=== PATIENT | female | born 1955 | race Caucasian/White ===

== ENCOUNTER 2025-03-02 12:48 | Outpatient (AMB) | payer MEDICARE, OTHER, SELFPAY ==
--- NOTE | 2025-03-02 13:02 | MHC.PC.OV ---
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 Patient c/o sciatica px flaring today. 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- aspirin 81 mg PO DAILY hydrochlorothiazide 25 mg PO DAILY lisinopril 40 mg PO DAILY metoprolol tartrate 12.5 mg PO BID rosuvastatin 5 mg PO DAILY Tobacco use date assessed: 03/02/25 Fall risk assessment: No Falls in past year Last assessed Fall Risk: 03/02/25 Dental Screening Dental Screen Date: 03/02/25 Did you have a dental visit in the last 12 months?: Yes Did you have a dental problem in the last 6 months where you did not have access to dental care?: No Was dental information given to patient?: Patient has dentist HPI HPI Comments History of Present Illness Details 69 y/o F with HTN, HLD, CAD, liver cysts, hx of spontaneous coronary dissection 2010 Social: , has children ( Woody also a patient here) Health Maintenance Flu 03/02/25 Tdap 2018 Mammo Colon DEXA Pap Specialist [facility] cards annual visits, last 01/2025 History of Present Illness The patient is a 69 year old female presenting to est care with sciatica. only previous medical records avail to review were from cards. Sciatica: - Reports pain left lower back radiating down leg, ongoing for years. - Symptoms include numbness, tingling, aggravated by prolonged sitting, activities like gardening. Left low back pain Left foot goes numb intermittently Started Hx of R foot drop years ago Saw neuro at that time Reports testing done -- ?? EMG States it did not show anything Denies red flag sx. Vertigo: - Episodic vertigo upon left side positioning, currently less active. BPPV worse on L side sx come and go Would like Vestibular PT History of Spontaneous Coronary Artery Dissection/HTN/CAD - In 2010 after workout and stress; required coma for prevention of brain damage. Monitored by Cards Review of Systems - Musculoskeletal: Reports left lower back pain radiating to leg with numbness and tingling. - Neurological: Denies current active vertigo but reports past episodes associated with left-side positioning. - Cardiovascular: Denies new episodes post-2011 coronary artery dissection. Physical Exam General: Well developed, well nourished, in no acute distress. Appears stated age. Head: Normocephalic, atraumatic. Eyes: Pupils are equal, round and reactive to light and accommodation. Conjunctivae are clear. Vision grossly normal. Lungs: Clear to auscultation bilaterally. No rales, rhonchi or wheeze noted. Good air flow in all [place]. Heart: Regular rate and rhythm. No murmurs, click, rubs or gallops are noted. Musculoskeletal: Joints are nontender, without swelling, redness, or effusions. Pulses: Peripheral pulses are equal and palpable bilaterally. Extremities: No clubbing, cyanosis nor edema is noted. Left leg larger than Right (baseline) Neuro: REDDING x 4, normal strength, tone and reflexes. no spinal tenderness, no si joint tenderness. No CVAT bilat. Psych: Mood and affect appropriate. Results Pending Discussion Notes I discussed the patient's sciatica, suggesting physical therapy to address ongoing back and leg pain. We reviewed the patient's history of spontaneous coronary artery dissection and current management with medications like aspirin and rosuvastatin. For vertigo, I proposed vestibular therapy, which the patient was amenable to. I explained the benefits of diclofenac for inflammation, highlighting that the park guard did not restrict NSAID use, and ensured the patient consented to labs for baseline evaluation. Educational discussion included follow-up in 4-6 weeks for lab results review unless sooner due to critical findings. I emphasized communication with cardiology regarding any new symptoms. Patient was given time to ask questions. All questions were answered to their satisfaction. Assessment and Plan 1. Sciatica - Start physical therapy; prescribe diclofenac for inflammation. Use for 2 weeks then PRN 2. Vertigo - Start vestibular therapy. 3. Coronary Artery Disease/HTN/hx of dissection - Continue cardiology follow-up, maintain current medications. 4. Other Management - Baseline labs ordered. Flu admin today Patient Instructions - Take diclofenac two times a day with food for 2 weeks. - Attend physical therapy for both dizziness and back/leg issues. - Get labs done today or whenever convenient. - Call for any new or worsening symptoms or with questions. - RTO 4-6 weeks SAWV sooner PRN Consent The patient consented to the proposed management of sciatica with diclofenac and physical therapy after discussing risks and benefits. She acknowledged understanding NSAID safety post-cardiac incident and agreed to baseline lab testing. Consent obtained verbally during the encounter. Patient was informed and verbally consented to the use of an ambient scribe for clinic note documentation during this visit. Total time spent caring for the patient today was 40 minutes. This includes time spent before the visit reviewing the chart, time spent during the visit, and time spent after the visit on documentation, reviewing laboratory results, diagnostic imaging, medications, performing a medically necessary evaluation, counseling on diagnoses, care coordination, ordering appropriate tests, ordering appropriate medications, review of tests performed by other providers, reporting test results with the patient, communication with other healthcare providers. [facility] Medical History (Updated 03/02/25 @ 14:25 by Brittanie Soto, [facility]) Heart burn HTN (hypertension) Hx of mammogram (~05/2024) Sun-damaged skin Surgical History (Updated 03/02/25 @ 13:13 by Eddy Cee MA) H/O: hysterectomy Hx of colonoscopy (~2019) Family History (Updated 03/02/25 @ 13:14 by Eddy Cee MA) Father HTN (hypertension) High cholesterol Mother Bleeding ulcer Social History (Updated 03/02/25 @ 13:11 by Eddy Cee MA) Household Members: Spouse Both parents involved: No Caregiver staying overnight: No Housing: House Are you a primary critical care registered nurse to a significant other at home: No Do you presently have visiting nurse or other home services: No 75 years or older and lives alone: No Alcohol intake: never Patient Tobacco Use Status: Never used Tobacco e-Cigarette/Vaping Use: Never Used Second Hand Smoke Exposure: No service: No Current occupational status: retired Current occupational exposures/hazards: No Cognitive needs: No Hearing needs: No Vision needs: Yes (wear glasses) Questionnaire PHQ-9 Over the last 2 weeks, how often have you been bothered by any of the following problems? 1. Little interest or pleasure in doing things: not at all 2. Feeling down, depressed, or hopeless: not at all 3. Trouble falling or staying asleep, or sleeping too much: not at all 4. Feeling tired or having little energy: not at all 5. Poor appetite or overeating: not at all 6. Feeling bad about yourself - or that you are a failure or have let yourself or your family down: not at all 7. Trouble concentrating on things, such as reading the newspaper or watching television: not at all 8. Moving or speaking so slowly that other people could have noticed. Or the opposite - being so fidgety or restless that you have been moving around a lot more than usual: not at all 9. Thoughts that you would be better off or of hurting yourself in some way: not at all Total score: 0 Depression Screening Interpretation: Negative Depression Screening Done: Yes 33313 - PHQ-9 Billing: Yes Source: Developed by Drs. Marcos Pineda, Lo Yan, Sukhwinder Matute and colleagues, with an educational maikol from [employer]. Thrive Questionnaire Date Thrive assessed: 03/02/25 I am a: Patient What is your living situation today?: I have a steady place to live Within the past 12 months, did the food you bought not last and you didn't have the money to get more?: Never true Within the past 12 months, did you worry whether your food would run out before you got money to buy more?: Never true Do you have trouble paying for medicines?: No Do you have trouble getting transportation to medical appointments?: No Do you have trouble paying your heating and electricity bill?: No Do you have trouble taking care of your child, family member or friend?: No Do you have trouble with day-to-day activities such as bathing, preparing meals, shopping, managing finances, etc.?: No Are you currently unemployed and looking for a job?: No Are you interested in more education?: No Please select the resources that you would like help with: None Currently or been in a relationship where the following occur: No concerns reported THRIVE Score: 0 AUDIT C Alcohol Use Questionnaire (AUDIT-C) 1. How often do you have a drink containing alcohol?: Never 2. How many drinks containing alcohol do you have on a typical day when you are drinking?: 1 or 2 3. How often do you have six or more drinks on one occasion?: Never Total Score: 0 Score Reviewed/Action Taken: Yes TREVER-7 AMB Questionnaire TREVER-7 Date TREVER - 7 assessed: 03/02/25 Feeling nervous, anxious, or on edge: 0 = Not at all Not being able to stop or control worryin = Not at all Worrying too much about different things: 0 = Not at all Trouble relaxin = Not at all Being so restless that it is hard to sit still: 0 = Not at all Becoming easily annoyed or irritable: 0 = Not at all Feeling afraid as if something awful might happen: 0 = Not at all Total TREVER-7 score (0-4 normal; 5-9 mild; 10-14 moderate; 15-21 severe): 0 Source: Developed by Drs. Marcos Pineda, Lo Yan, Sukhwinder Matute and colleagues, with an educational maikol from [employer]. TREVER-7 Assessment Billing TREVER-7 Assessment Tool: TREVER-7 Assessment 57781 Physical exam (Primary Care) Vital Signs: Last Vital Signs Temp 97.2 F 03/02/25 13:08 Pulse 65 03/02/25 13:08 Resp 12 03/02/25 13:08 BP 104/69 03/02/25 13:08 Pulse Ox 96 03/02/25 13:08 Oxygen Delivery Method Room Air 03/02/25 13:08 BMI result Body Mass Index 29.0 Tobacco/Smoking Status: Tobacco use Status Tobacco use date assessed 03/02/25 03/02/25 13:04 Patient Tobacco Use Status Never used Tobacco 03/02/25 13:11 e-Cigarette/Vaping Use Never Used 03/02/25 13:11 PHQ-9: PHQ-9 Score PHQ-9: Total score 0 03/02/25 13:58 Depression Screening Interpretation: Negative Thrive Assessment: Date of Thrive Assessment Date Thrive assessed 03/02/25 03/02/25 13:04 Currently or been in a relationship where the following occur: No concerns reported Office Procedures Flu Questionnaire Does the patient have a severe egg allergy?: No Does the patient have severe life threatening allergies?: No Does the patient have a fever or illness today?: No Has the patient ever had Guillain-Robert Lee Syndrome?: No Has the patient ever had any past reaction to a flu shot?: No Immunizations Fluarix [id number] (PF) 45 mcg (15 mcg x 3)/0.5 mL IM syringe Performing Provider: DEDRA Barron Performing Location: [facility] Administered by: Eddy Cee MA on 03/02/25 13:50 Dose Route Admin Location Dispensed Lot Number Expiration Date NDC [employer] Care Coach 0.5 mL IM Right Deltoid 0.5 mL [id number] 11/15/25 [id number] [employer] VIS Given Date VIS Provided VIS Publication Date 03/02/25 Single Vaccine 24 Eligibility Eligibility Date Funding Source Not [facility] Eligible 03/02/25 Private Coding Level of Care Code Est Pt Level 4 (78519) Complex EM visit Add On G2211 Diagnoses Encounter to establish care with new provider Z76.89 Spontaneous dissection of coronary artery I25.42 Coronary artery disease involving citizen [place] coronary artery of [place] heart without angina pectoris I25.10 Coronary Disease-Associated Artery/Lesion type: [place] artery [place] vs. transplanted heart: [place] heart Associated angina: without angina Liver cyst K76.89 Influenza vaccination administered at current visit Z23 Benign paroxysmal positional vertigo due to bilateral vestibular disorder H81.13 Laterality: bilateral Primary hypertension I10 Hypertension type: primary hypertension Low back pain radiating to left leg M54.50; M79.605 Additional Codes TREVER-7 Assessment Billing - TREVER-7 Assessment Tool: TREVER-7 Assessment 89052 ([id number]) PHQ-9 - 30094 - PHQ-9 Billing: Yes ([id number]) Assessment & Plan Assessment & Plan (1) Encounter to establish care with new provider: Code(s): Z76.89 - Persons encountering health services in other specified circumstances (2) Spontaneous dissection of coronary artery: Code(s): I25.42 - Coronary artery dissection Category: Medical (3) CAD (coronary artery disease): Code(s): I25.10 - Atherosclerotic heart disease of citizen [place] coronary artery without angina pectoris Category: Medical Qualifiers: Coronary Disease-Associated Artery/Lesion type: [place] artery [place] vs. transplanted heart: [place] heart Associated angina: without angina Qualified Code(s): I25.10 - Atherosclerotic heart disease of citizen [place] coronary artery without angina pectoris (4) Liver cyst: Code(s): K76.89 - Other specified diseases of liver Category: Medical (5) Influenza vaccination administered at current visit: Code(s): Z23 - Encounter for immunization Category: Medical (6) BPPV (benign paroxysmal positional vertigo): Code(s): H81.10 - Benign paroxysmal vertigo, unspecified ear Category: Medical Qualifiers: Laterality: bilateral Qualified Code(s): H81.13 - Benign paroxysmal vertigo, bilateral (7) HTN (hypertension): Code(s): I10 - Essential (primary) hypertension Category: Medical Qualifiers: Hypertension type: primary hypertension Qualified Code(s): I10 - Essential (primary) hypertension (8) Low back pain radiating to left leg: Code(s): M54.50 - Low back pain, unspecified; M79.605 - Pain in left leg Category: Medical Plan . Orders: Orders Influenza [id number] Immunization Today Z23 - Encounter for immunization PT Evaluation and Treatment Today H81.10 - Benign paroxysmal vertigo, unspecified ear Complete Blood Count no Diff Today I10 - Essential (primary) hypertension, I25.10 - Atherosclerotic heart disease of citizen [place] coronary artery without angina pectoris Microalbumin, Random (w Creat) Today I10 - Essential (primary) hypertension, I25.10 - Atherosclerotic heart disease of citizen [place] coronary artery without angina pectoris TSH reflex Free T4 Today I10 - Essential (primary) hypertension, I25.10 - Atherosclerotic heart disease of citizen [place] coronary artery without angina pectoris Ferritin Today I10 - Essential (primary) hypertension, I25.10 - Atherosclerotic heart disease of citizen [place] coronary artery without angina pectoris Vitamin B12 and Folate Today I10 - Essential (primary) hypertension, I25.10 - Atherosclerotic heart disease of citizen [place] coronary artery without angina pectoris PT Evaluation and Treatment Today M54.50 - Low back pain, unspecified, M79.605 - Pain in left leg Comprehensive Met. Panel Today I10 - Essential (primary) hypertension, I25.10 - Atherosclerotic heart disease of [place] coronary artery without angina pectoris Lipid Panel Today I10 - Essential (primary) hypertension, I25.10 - Atherosclerotic heart disease of citizen [place] coronary artery without angina pectoris Hemoglobin A1c Today I10 - Essential (primary) hypertension, I25.10 - Atherosclerotic heart disease of citizen [place] coronary artery without angina pectoris Vitamin D 25-OH Total Today I10 - Essential (primary) hypertension, I25.10 - Atherosclerotic heart disease of citizen [place] coronary artery without angina pectoris Medications: New diclofenac sodium 25 mg PO BID 30 tabs 0RF Patient Instructions: Walk-In Care (Urgent Care): We Make it Easy Walk-in for urgent medical issues such as: ? Seasonal Allergies ? Insect Bites ? Cough ? Diarrhea ? Acute Asthma Attacks ? Back, Knee or Joint Pain ? Ear Infection ? Fever without a Rash ? Headaches ? Nausea ? [place], Rash or Skin Irritation ? Sore Throat ? Sports Physicals ? Vomiting Most insurances are accepted. Patients do not need to be part of the [facility] to seek care at the walk-in clinic. Locations [address] [place], [place] Open Friday through Friday 8am-5pm *Hours may vary due to staffing availability. To confirm Walk-In Care hours please call. [address] [facility] , [place] [address] ? [phone] [facility] Walk-In Care in [place] provides services to ages 18 and over. Open Friday-Friday: 7 a.m. to 5 p.m. and Friday: 9 a.m. to 3 p.m.* *Hours may vary due to staffing availability. To confirm Walk-In Care hours in [place], please call [phone]. [address] [place] [address] ? [phone] [facility] Walk-In Care in [place] provides services to ages 12 and over. Open Friday-Friday: 8 a.m. to 5 p.m. Hours may vary due to staffing availability. To confirm Walk-In Care hours in [place], please call [phone]. LABORATORY SERVICES: [facility] Lab ? Primary Location [address] [place] [address] Friday through Friday 6:00 AM ? 5:00 PM Friday 7:00 AM ? 11:00 AM* [phone] The [facility] Lab is centrally located near the front entrance of the [facility] for easy outpatient access. Convenient parking is provided for outpatients. *Hours may vary due to staffing availability. To confirm Laboratory hours for any location, please call [phone]. Offsite Location For your convenience, we offer offsite laboratory draw stations at the following locations: [address] [place] [address] ? [facility] [address], [address], [place] Friday through Friday 7:30 AM ? 1:00 PM* [phone] *Hours may vary due to staffing availability. To confirm Laboratory hours for any location, please call [phone]. [place] ? [facility] [facility] [address] [facility], [place] Friday through Friday 6:00 AM ? 3:30 PM* Friday 6:30 AM ? 3 PM* [phone] *Hours may vary due to staffing availability. To confirm Laboratory hours for any location, please call [phone]. [address] [facility] Friday through Friday 7:30 AM ? 4:00 PM* [phone] *Hours may vary due to staffing availability. To confirm Laboratory hours for any location, please call [phone] [place] [address] Friday through 9:00 AM ? 4:00 PM* *Hours may vary due to staffing availability. To confirm Laboratory hours for any location, please call [phone]. Appointments are not necessary. Walk-ins are welcome. Like all the departments throughout the [facility], our Lab undergoes frequent reviews to ensure the quality and accuracy of test results, and our staff takes special pride in its status as a nationally accredited facility. Patient Portal: [facility] ONE PATIENT. ONE RECORD. BETTER CARE. [facility] has a fully integrated, cutting-edge mobile electronic health information system that has revolutionized the way we care for our patients and manage our organization. This system improves communication and coordination enabling us to provide safe, higher-quality care, and an overall positive experience for staff and patients. Our first priority, as always, is to deliver the highest quality care possible. The system is running in the background supporting that priority. This portal is for all [facility] services and practices. If you are experiencing any technical difficulties with enrolling or logging into the Patient Portal please complete the [facility] Patient Portal Technical Support Form. [facility] now offers a new secure on-line interactive tool for patients to review their health information ? ?Patient Portal. This interactive web portal will enable patients and their families to take an active role in their care by providing easy, secure access to their health information via the internet. The Patient Portal provides patients with instant access to their health information, including laboratory results, medications, allergies, demographic information, visit history, and more. In addition to managing their own care, parents and health care proxies with authorized consent will appreciate the ability to access the records of those individuals for whom they provide care. Please note: if you wish to gain access (Proxy) to another patient?s portal, you will be required to come to the Medical Records Department in person at [facility]. Both the patient giving proxy access and the proxy will need to provide photo identification and complete the appropriate authorization. The Patient Portal also allows track their appointments online. The [facility] Patient Portal also saves patients time by allowing them to submit updates to their demographic and contact information prior to their visits. Portal email notifications will also alert patients to any new activity on their portal, such as test results and new appointments. In order to initially enroll in the [facility] Patient Portal, you will need to enter some required information including the following: your [facility] Medical Record number your personal home email address name date of Please note: In order to enroll in the [facility] Patient Portal, we need to have your email address on file in your electronic medical record. ?The email address needs to be specific for one person (yourself) in order for your Portal enrollment to be successful. ?You can update your email address in person with our Registration staff when you are registering for a hospital visit. ?Otherwise, you will need to come to the Health Information Management (Medical Records) Department at [facility]. ?We are open from Friday ? Friday from 7:30 a.m. ? 4:30 p.m. ?You will be required to present a photo id. Once you have successfully enrolled in the Patient Portal, you will receive a one-time user id and password for the Portal, sent to your email address. ?This will allow you to log into the Patient Portal within 99 hrs and reset your own logon id and password, and define personal security questions. ?Once your permanent login and password have been set, you can log into the [facility] Patient Portal at any time via the blue button above or from the Portal Logon button on any page of the [facility] website. [facility] encourage all of our patients to enroll in Patient Portal as it presents a valuable opportunity for patients and their families to actively participate in their care and stay healthy Welcome to [facility]. ?We look forward to working with you.
[2025-03-02 13:08] VITALS: BP 104/69; PULSE 65; RESP 12; TEMP 36.2; O2SAT 96; BMI 29.0
--- OUTSIDE RECORDS SUMMARY | 2025-03-02 16:10 | XMS_ITS | Clinical Summary ---
Author Organization [facility] [place] Address [address] [place], [place] [address] Phone Care Team Providers Care Appliance Servicer Name Role Phone Beatriz Santiago MD Primary Care Provider [phone] Allergies No known active allergies Medications rosuvastatin (CRESTOR) 5 mg tablet Take 1 Tablet by mouth daily. 04/08/2023 Active aspirin 81 mg chewable tablet 81 mg daily. 01/16/2020 Active metoprolol tartrate (LOPRESSOR) 25 mg tablet Take 0.5 tablets (12.5 mg total) by mouth 2 (two) times a day. 90 each 3 03/26/2024 Active hydroCHLOROthia zide (HYDRODIURIL) 25 mg tablet TAKE 1 TABLET BY MOUTH EVERY DAY 90 tablet 1 11/08/2024 Active lisinopril (PRINIVIL,ZESTR IL) 40 mg tablet Take 1 tablet (40 mg total) by mouth 1 (one) time each day. 90 tablet 1 12/21/2024 Active Hospital, Clinic, or Other Facility Administered Medication Ordered Dose Route Frequency Start Date End Date Status regadenoson (LEXISCAN) injection 0.4 mg 0.4 mg IV Once in imaging 03/26/2024 Act marco Active Problems Problem Noted Date Diagnosed Date Chest pain 03/26/2024 Assessment & Plan (03/26/2024 3:29 PM EST): She complains of worsening acid reflux type symptom. Previous stress echocardiogram had some hypokinesis in the LAD territory. Considering this, we decided to move forward with Regadenosone stress test. She is currently on aspirin and atorvastatin and I started metoprolol today. HTN (hypertension) 02/01/2021 Overview (02/17/2024): Last Assessment & Plan: Blood pressure is under excellent control with a reading today 134/86. Continue with chlorothiazide and lisinopril as prescribed. Assessment & Plan (03/26/2024 3:29 PM EST): Blood pressure today is 140/70. Since we started the metoprolol and she is already on hydrochlorothiazide and lisinopril, we will continue to monitor for now. Orders: ECG 12 lead Hypercholesterolemia 07/26/2020 Overview (02/17/2024): Last Assessment & Plan: Patient's last LDL cholesterol was 88. This is acceptable. Continue with rosuvastatin as prescribed. 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 She had a stress echocardiogram earlier this year which did not reveal any significant ischemia. She denies any cardiac symptoms or exertional anginal symptoms. She continues on cardioprotective medical therapy with aspirin and statin. No changes to her medical therapies today. I have reviewed with the patient the importance of a heart healthy lifestyle which includes eating a low-fat low-salt diet, getting regular exercise, maintaining a healthy weight, not smoking, and following up with routine medical care. Assessment & Plan (03/26/2024 3:29 PM EST): History of coronary artery excision in 2010. Currently not on any beta-johan. We discussed today that beta-johan usually reduces the recurrence of scad. Her heart rate is 62 bpm. After having detailed discussion, we decided to start on metoprolol 12.5 mg twice daily and see how does she tolerate. Does not want a surveillance CT scan for fibromuscular dysplasia at this time. Orders: Lipid panel; Future Regadenoson (Lexiscan) nuclear stress test with myocardial perfusion; Future Lipid panel Encounters Date Type Department Care Team Description 02/09/2025 Telephone [facility] Cardiology [facility] [address] [place] [address] Provider, Not In System 12/30/2024 Telephone [facility] [address] [facility] [address] [place] [address] Tanna Driscoll NP 12/21/2024 Telephone [facility] [address] [place] [address] Vale Esparza MD from Last 3 Months Surgical History Surgery Date Site/Laterality Comments HYSTERECTOMY 05/19/1992 - 05/18/1993 Medical History Medical History Date Comments Hypertension 02/01/2021 Hypercholesterolemia 07/26/2020 Coronary artery dissection 07/26/2020 Family History Medical History Relation Name Comments Hypertension Father Breast cancer Mother Hypertension Sister Relation Name Status Comments Father Mother Sister Social History Tobacco Use Types Packs/Day Years Used Date Smoking Tobacco: Never Passive Smoke Exposure: Never Smokeless Tobacco: Never Tobacco Cessation:Counseling Given: Not Answered Alcohol Use Standard Drinks/Week Comments Not Currently 0 (1 standard drink = 0.6 oz pur e alcohol) Comments No Sex and Gender Information Value Date Recorded Sex Assigned at Not on file Legal Sex Female 8:31 AM EST Gender Identity Not on file Sexual Orientation Not on file Obstetrics History Para Term AB IAB SAB Ectopic Multiple Livin g Live Births 1 Last Filed Vital Signs Vital Sign Reading Time Taken Comments Blood Pressure 119/80 04/19/2024 8:21 AM EST Pulse 60 03/26/2024 12:54 PM EST Temperature - - Respiratory Rate - - Oxygen Saturation 96% 03/26/2024 12:54 PM EST Inhaled Oxygen Concentration - - Weight 74.8 kg (165 lb) 06/01/2024 8:03 AM EST Height 165.1 cm (5' 5 ) 06/01/2024 8:03 AM EST Body Mass Index 27.46 06/01/2024 8:03 AM EST Plan of Treatment Upcoming Encounters Date Type Department Care Team (Late st Contact Info) Description 04/07/2025 7:40 AM EST Office Visit [facility] [address] [place] [address] Tanna Driscoll NP [address] [place] [address] [address] [place] [address] Health Maintenance Due Date Last Done Comments Zoster Vaccines (1 of 2) 2006 Pneumococcal Vaccine: 50+ Years (2 of 2 - PCV) 04/08/2012 04/08/2011 Falls Risk Assessment 04/21/2022 Hepatitis C Screening 04/21/2022 Medicare Annual Wellness Visit 04/21/2022 Osteoporosis Screening (Bone Density Screening) 04/21/2022 Social Influencers of Health Screening 04/21/2022 Hypertension/CHF/CAD Annual BMP Blood Test 04/28/2022 Depression Screening 05/19/2024 COVID-19 Vaccine ( season) 2025 02/26/2023, 04/30/2022, 03/13/2021, Additional history exists Influenza Vaccine (#1) 2025 , 02/26/2023, 03/25/2022, Additional history exists Colorectal Cancer Screening: Colonoscopy 04/18/2026 04/18/2021 Breast Cancer Screening 06/01/2026 06/01/19, 05/07/2023, 05/06/2022, Additional history exists DTaP,Tdap,and Td Vaccines (2 - Td or Tdap) 01/13/2028 01/12/2018 Cholesterol Screening (Lipid Panel) 04/12/2029 04/12/2024, 02/01/2021 RSV Immunization Adult Patients (1 - 1-dose 75+ series) 2031 HIB Vaccines Aged Out No longer eligi ble based on patient's age to complete this topic HPV Vaccines Aged Out No longer eligi ble based on patient's age to complete this topic Hepatitis A Vaccines Aged Out No long er eligible based on patient's age to complete this topic Hepatitis B Vaccines Aged Out No long er eligible based on patient's age to complete this topic IPV Vaccines Aged Out No longer eligi ble based on patient's age to complete this topic MMR Vaccines Aged Out No longer eligi ble based on patient's age to complete this topic Meningococcal ACWY Vaccine Aged Out N o longer eligible based on patient's age to complete this topic Meningococcal B Vaccine Aged Out No l onger eligible based on patient's age to complete this topic RSV Immunization Patients Under 20 months Aged Out No longer eligible based on patient's age to complete this topic Varicella Vaccines Aged Out No longer eligible based on patient's age to complete this topic Procedures Procedure Name Priority Date/Time Associated Diagnosis Comments MG MAMMO DIGITAL SCREENING W JESUS BILAT Routine 06/01/2024 8:15 AM EST Encounter for screening mammogram for breast cancer LIPID PANEL Routine 04/12/2024 8:05 AM EST Coronary artery dissection HM COLONOSCOPY Routine 04/18/2021 from Last 3 Months or Most Recently Relevant to Health Maintenance Results * MG Mammo Digital Screening w Jesus bilat (06/01/2024 8:15 AM EST) Anatomical Region Laterality Modality Breast Bilateral Mammography 06/01/2024 9:30 AM EST Impressions 06/01/2024 9:45 AM EST No mammographic evidence of malignancy. No suspicious interval change. A negative mammogram in the presence of a clinically suspicious palpable abnormality does not preclude the possibility of malignancy or alter the indications for biopsy. ASSESSMENT: BI-RADS 2: BENIGN RECOMMENDATION(S): 1: Routine screening mammogram BILATERAL in 1 year. -------- FINAL REPORT -------- Dictated By: Sy Fitzpatrick Dictated Date: 06/01/2024 09:30 ET Assigned Physician: Sy Fitzpatrick Reviewed and Electronically Signed By: Sy Fitzpatrick Signed Date: 06/01/2024 09:45 ET Workstation ID: [id number] Transcribed By: Self Edit Transcribed Date: 06/01/2024 09:33 ET Narrative 06/01/2024 9:45 AM EST EXAM: SCREENING MAMMOGRAPHY, BILATERAL HISTORY: SCREENING. Mother with history of breast cancer. COMPARISON: 05/07/2023, 05/04/2022, 03/08/2021 TECHNIQUE: Synthesized CC and MLO projections of each breast. Tomosynthesis of each breast in the CC and MLO projections. ADDITIONAL IMAGING: None Computer-aided detection was employed with the [employer] AI 3-D. TISSUE DENSITY: The breasts are almost entirely fatty. (BI-RADS Category A) FINDINGS: RIGHT BREAST: No suspicious mass. No suspicious calcification. No distortion. No additional suspicious right breast findings LEFT BREAST: There is a stable asymmetry in the superior left breast. No additional suspicious left breast findings Procedure Note Sy Fitzpatrick MD - 06/01/2024 EXAM: SCREENING MAMMOGRAPHY, BILATERAL HISTORY: SCREENING. Mother with history of breast cancer. COMPARISON: 05/07/2023, 05/04/2022, 03/08/2021 TECHNIQUE: Synthesized CC and MLO projections of each breast.Tomosynthesis of each breast in the CC and MLO projections. ADDITIONAL IMAGING: None Computer-aided detection was employed with the [employer] profound AI 3-D. TISSUE DENSITY: The breasts are almost entirely fatty. (BI-RADS CategoryA) FINDINGS: RIGHT BREAST: No suspicious mass. No suspicious calcification. No distortion. Noadditional suspicious right breast findings LEFT BREAST: There is a stable asymmetry in the superior left breast. No additionalsuspicious left breast findings IMPRESSION: No mammographic evidence of malignancy. No suspicious interval change. A negative mammogram in the presence of a clinically suspicious palpableabnormality does not preclude the possibility of malignancy or alter theindications for biopsy. ASSESSMENT: BI-RADS 2: BENIGN RECOMMENDATION(S): 1: Routine screening mammogram BILATERAL in 1 year. -------- FINAL REPORT -------- Dictated By: Sy Fitzpatrick Dictated Date: 06/01/2024 09:30 ET Assigned Physician: Sy Fitzpatrick Reviewed and Electronically Signed By: Sy Fitzpatrick Signed Date: 06/01/2024 09:45 ET Workstation ID: [id number] Transcribed By: Self Edit Transcribed Date: 06/01/2024 09:33 ET us Self Referral Sppl IMG BI PROCEDURES Final Resul t * (ABNORMAL) Lipid panel (04/12/2024 8:05 AM EST) Cholesterol Total 186 100 - 199 mg/dL [facility] Triglycerides 128 0 - 149 mg/dL [facility] HDL Cholesterol 57 >39 mg/dL [facility] 1 VLDL Cholesterol Calculated 23 5 - 40 mg/dL [facility] 1 LDL Chol Calc ([facility]) 106(H) 0 - 99 mg/dL [facility] 1 Blood Venous blood specimen / Unknown 04/12/2024 8:05 AM EST 04/12/2024 Narrative [facility] 1 - 04/13/2024 1:06 AM EST Performed at: - [facility] [address] [id number] Interlocking Machine Operator: Antionette Amado MD, Phone: [phone] Vale Esparza MD LAB BLOOD ORDERABLES Final Res ult [facility] 1 * Colonoscopy (04/18/2021) HM Colonoscopy No interpretation , abstracted Anatomical Region Laterality Modality Other Historical Provider HEALTH MAINTENANCE Final Result from Last 3 Months or Most Recently Relevant to Health Maintenance Insurance MEDICARE [facility] [address] [place] [address] Care Teams Appliance Servicer Relationship Specialty Start Date End Date Beatriz Santiago MD [address] [place] [id number] PCP - General Internal Medicine 02/09/25
--- OUTSIDE RECORDS SUMMARY | 2025-03-02 16:10 | XMS_ITS | Encounter Summary ---
Author Organization [facility] [place] [address] Care Team Providers Care Technician Automated Equipment Name Role Phone Beatriz Santiago MD Primary Care Provider [phone] Reason for Visit * Reason Onset Date Comments Medical Records 02/09/2025 Encounter Details Date Type Department Care Team (Late st Contact Info) Description 02/09/2025 Telephone [facility] [address] [place] [address] Provider, Not In System Social History Tobacco Use Types Packs/Day Years Used Date Smoking Tobacco: Never Passive Smoke Exposure: Never Smokeless Tobacco: Never Alcohol Use Standard Drinks/Week Comments Not Currently 0 (1 standard drink = 0.6 oz pur e alcohol) Comments No Sex and Gender Information Value Date Recorded Sex Assigned at Not on file Legal Sex Female 8:31 AM EST Gender Identity Not on file Sexual Orientation Not on file documented as of this encounter Progress Notes * Gabby Adna - 02/28/2025 3:41 PM EDT Faxed 03/26/2024 Office Note, EKG and 04/19/2024 Nuclear Stress Test to [facility] Att: Brittanie Soto N.P. at [phone] on 02/09/2025 documented in this encounter Plan of Treatment Upcoming Encounters Date Type Department Care Team (Late st Contact Info) Description 04/07/2025 7:40 AM EST Office Visit [facility] [address] [place] [address] Tanna Driscoll, AJ [address] [place] [address] [address] [place] [phone] documented as of this encounter Visit Diagnoses Not on filedocumented in this encounter Care Teams Technician Automated Equipment Relationship Specialty Start Date End Date Beatriz Santiago MD [address] [place] [address] [address] [place] [address] PCP - General Internal Medicine 02/09/25 documented as of this encounter
== END 2025-03-02 14:20 | disposition home or self-care (01) ==
LOC: HO.HMCFM 12:49
PROVIDERS: PCP Nurse Practitioner Family; Visit Provider Nurse Practitioner Family
DX: Z76.89 Persons encountering health services in other specified circumstances (principal); I25.42 Coronary artery dissection; I25.10 Atherosclerotic heart disease of native coronary artery without angina pectoris; K76.89 Other specified diseases of liver; Z23 Encounter for immunization; H81.13 Benign paroxysmal vertigo, bilateral; I10 Essential (primary) hypertension; M54.50 Low back pain, unspecified; M79.605 Pain in left leg

== ENCOUNTER → 2025-03-02 12:48 | Outpatient (BNVA) | payer MEDICARE, OTHER, SELFPAY | PROVIDERS: PCP Nurse Practitioner Family; Visit Provider Nurse Practitioner Family | DX: I10 Essential (primary) hypertension (principal); E78.5 Hyperlipidemia, unspecified; I25.10 Atherosclerotic heart disease of native coronary artery without angina pectoris; M54.32 Sciatica, left side; I25.42 Coronary artery dissection; K76.89 Other specified diseases of liver; H81.13 Benign paroxysmal vertigo, bilateral; M79.605 Pain in left leg; Z23 Encounter for immunization; Z76.89 Persons encountering health services in other specified circumstances | CPT/HCPCS: 90471; 90656; 96127; 99212 ==

== ENCOUNTER 2025-03-28 10:42 | Outpatient (REF) | payer MEDICARE, OTHER, SELFPAY ==
[2025-03-28 13:31] LABS: Hematocrit 43.7 % (37.0-47.0); Hemoglobin 15.0 g/dl (12.0-16.0); Mean Corpuscular HGB Conc 34.3 g/dl (31.0-35.0); Mean Corpuscular Hemoglobin 31.3 pg (27.0-33.0); Mean Corpuscular Volume 91.0 fL (80.0-98.0); NRBC Abs Auto 0.000 X10*3/uL (0.0-0.012); NRBC Pct Auto 0.0 /100WBC (0.0-0.2); Platelet Count 210 X10*3/uL (160-400); Red Blood Count 4.80 X10*6/uL (4.20-5.50); White Blood Count 5.7 X10*3/uL (4.8-10.8)
[2025-03-28 14:26] LABS: Alanine Aminotransferase 24 U/L (0-31); Albumin Level 4.4 g/dL (3.5-5.0); Alkaline Phosphatase 49 U/L (39-117); Anion Gap 10 (12-20); Aspartate Amino Transferase 29 U/L (5-31); Blood Urea Nitrogen 19 mg/dL (9-16); Calcium 9.3 mg/dL (8.4-10.2); Carbon Dioxide 29 mmol/L (22-29); Chloride 108 mmol/L (96-108); Cholesterol 193 mg/dL (<200); Estimated Glomerular Filt Rate > 60; HDL Cholesterol 53 mg/dL (>40); Potassium 3.9 mmol/L (3.3-5.1); Sodium 143 mmol/L (135-145); Total Protein 7.0 g/dL (6.5-8.0); Triglycerides 138 mg/dL (<150)
[2025-03-28 14:35] LABS: Folate 12.3 ng/mL (> or = 4.0); Vitamin B12 213 pg/mL (200-900)
[2025-03-28 14:46] LABS: Ferritin 184 ng/mL (10-250)
== END 2025-03-28 10:43 | disposition home or self-care (01) ==
LOC: HO.HMGCLDS 10:42
PROVIDERS: PCP Nurse Practitioner Family; Visit Provider Nurse Practitioner Family
DX: Z13.1 Encounter for screening for diabetes mellitus (principal); Z13.21 Encounter for screening for nutritional disorder; I25.10 Atherosclerotic heart disease of native coronary artery without angina pectoris; I10 Essential (primary) hypertension
CPT/HCPCS: 36415; 80053; 80061; 82043; 82306; 82570; 82607; 82728; 82746; 83036; 84443; 85027

== ENCOUNTER 2025-05-16 14:02 | Outpatient (AMB) | payer MEDICARE, OTHER, SELFPAY ==
--- NOTE | 2025-05-16 14:03 | A.OFFVIS_ITS ---
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 The Medicare Annual Wellness Visit (AWV) is a yearly appointment with a health professional to identify health risks and help reduce them and to create or update a personalized prevention plan. During a Medicare AWV, health professionals should also review any current opioid prescriptions, detect any cognitive impairment, and establish or update medical and family history. 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 (), Mom w/ bleeding stomach ulcer, fibrous breast; Sister w/ Ulcerative colitis; PGF w/ cancer of old age; PGM [place]; MGM age 92; MGF unknown. Children alive and well. SocHx: , has children ( Woody also a patient here) Health Maintenance: See scanned preventative medicine assessment with personalized health plan and screening schedule. Colon: 2020 [facility], repeat due [address] [facility] Mammo 05/2024, will get done 2025 Ruby DEXA overdue, ordered today PAP: NA Vaccines: Tdap 2017. Flu 2024. Shinges, PCV needed. AAA screen: screened out EKG: managed by Cards [place] of Care: PV cards annual visits, last 03/2025 Derm Optho glasses [facility] Visual Acuity: Glasses last exam 5 years ago Hearing Screening: mild loss , refer for hearing test ACP: has HCP and Living will DNR/DNI Dietary/Nutrition/Exercise Edu provided: Y During the course of the visit the patient was educated and counseled about appropriate screening and preventative services. Patient instructions were provided to the patient in written or electronic format. I have reviewed and verified the above information. History of Present Illness The patient is a 70 year old female presenting for an annual Medicare wellness visit and evaluation of a severe, diffuse pruritic rash. Pruritus: - The patient reports a two-month histor y of a severely pruritic rash that significantly interferes with her sleep. - She was evaluated by a hr leader w lee ann diagnosed an allergic reaction and prescribed dexamethasone and Tylenol. - The patient has since stopped the dexa methasone and reports taking Nasreen without benefit. - She denies any changes to her other me dications and has tried changing laundry detergents without relief. Coronary artery disease: - The patient has a history of coronary artery disease and a spontaneous coronary artery dissection in 2010. - She is co-managed by cardiology, with her last visit in March 2025. Hypertension: - The patient has a history of hypertens ion and takes hydrochlorothiazide and lisinopril. Hyperlipidemia: - The patient has a history of hyperlipi demia and takes rosuvastatin. BPPVertigo: - The patient reports a recent short-margaret ed episode of vertigo, which she attributes to her head slipping off the pillow while tossing and turning from the pruritus. History of Basal Cell Carcinoma: - She has a history of basal cell carcin calin on her head and another location, for which she receives dermatologic follow-up. Past Medical History - Hypertension - Hyperlipidemia - Coronary artery disease - Spontaneous coronary artery dissection in 2010 - Vertigo - History of basal cell carcinoma - Fibroid tumor Past Surgical History - Hysterectomy for a fibroid tumor rafat leon 1991 Review of Systems - Constitutional: Reports significant in somnia secondary to pruritus. - Integumentary: Reports a severe, pruri tic rash for the past 2 months. - Neurological: Reports a recent, short- lived episode of vertigo. - Gastrointestinal: Denies heartburn. Physical Exam General: Well developed, well nourished, in no acute distress. Appears stated age. Head: Normocephalic, atraumatic. Eyes: Pupils are equal, round and reactive to light and accommodation. Conjunctivae are clear. Scleras nonicteric bilat. Vision grossly normal. Ears: TMs clear AU, EACS WNL Nose: Patent, without discharge. Neck: No carotid bruit bilat. Supple, no adenopathy or thyromegaly. Breast: Edu on SBE Lungs: Clear to auscultation bilaterally. No rales, rhonchi or wheeze noted. Good air flow in all izaguirre. Heart: Regular rate and rhythm. No murmurs, click, rubs or gallops are noted. Abdomen: Bowel sounds present in all quadrants. The abdomen is soft, nontender, with no masses or organomegaly noted. No hernias are noted. : Deferred. Reviewed recommendations for routine BOAT WRAPPER Pulses: Peripheral pulses are equal and palpable bilaterally. Extremities: No clubbing, cyanosis nor edema is noted. Neurologic: Gait and station normal. Cranial Nerves 2-12 intact. Motor strength grossly symmetrical and intact. No sensory loss. Balance normal. Skin: Turgor is good. Skin color is good. Hair and nails are without abnormalities. Diffuse maculopapular rash on trunk and ext,sparing face, palms and soles. No evangelist patch. No secondary infection. Psych: Normal eye contact, affect and mood appropriate, and normal interactions. Patient is alert and appropriate to context. Results see below Medical Decision Making The patient is a 70-year-old female here for a wellness visit, but her primary complaint is a severe, pruritic rash ongoing for two months that is causing significant insomnia. The rash has been refractory to initial treatment from dermatology and OTC antihistamines. Given the lack of other new exposures, a medication-induced drug eruption is a primary consideration, specifically from rosuvastatin, which is known to cause a pruritic rash as a rare side effect. The plan is to empirically test this hypothesis by having the patient hold the rosuvastatin for one week. Symptomatic treatment for the severe pruritus and associated insomnia will be provided with hydroxyzine. A prescription for high- dose cetirizine will also be sent, to be initiated only if symptoms do not improve after holding the statin for a week, which allows adequate time for the drug to clear the system. The patient is advised to follow up with dermatology and to notify me if the rash improves, which would support the diagnosis and necessitate a discussion with cardiology about alternative lipid-lowering therapy. Health maintenance items were also addressed, including ordering a long-overdue bone density scan, placing a referral for a future colonoscopy, and recommending indicated vaccinations for shingles and pneumonia. Plan Health Maintenance - Will order a new bone density scan. - A referral will be placed to [facility] erology for a colonoscopy, which is due in 2025. - Discussed and recommended the shingles (Shingrix) and pneumococcal vaccines. - Will request the report for her [facility] ng mammogram in May. 1. Pruritic Rash - A potential adverse effect of rosuvast atin is suspected as the cause of the pruritic rash. - Instructed to hold rosuvastatin for on e week. - Prescribed hydroxyzine 50 mg, one-half to one tablet three times per day as needed for itching and to aid sleep. - A contingent prescription for cetirizi ne was provided, to be started only if the rash does not improve after one week of holding rosuvastatin; the dose is two tablets in the morning and two at bedtime. - Advised to contact dermatology for a f ollow-up appointment. - If the rash resolves after stopping ro suvastatin, the patient should send a portal message so it can be added to her allergy list and a new lipid-lowering agent can be discussed with cardiology. 2. Hyperlipidemia - Temporarily discontinuing rosuvastatin to assess for a medication allergy as the cause of her rash. - Will coordinate with her corporate quality engineer regarding alternative lipid-lowering therapy if a rosuvastatin allergy is confirmed. Patient Instructions - Stop taking your rosuvastatin for one week to see if your rash improves. - You can start taking hydroxyzine for t he itching. You may take a half or a whole tablet up to three times per day as needed. This may also help you sleep. - A second prescription for cetirizine w as sent. Do not start this medication unless your rash is not getting better after one week of stopping the rosuvastatin. - If needed, you will take two cetirizin e tablets in the morning and two at bedtime. - Please call your hr leader to sche dule a follow-up appointment. - If your rash gets better after stoppin g the rosuvastatin, send a message through the patient portal to let us know. - An order for a new bone density scan h as been placed. You will be called to schedule this. - A referral has been sent for you to [facility] ve a colonoscopy. The gastroenterology office will call you to schedule a visit first. - Please get your shingles and pneumonia vaccines, which are available at most pharmacies. Consent No consent for a procedure or surgery was obtained during the visit. Patient was informed and verbally consented to the use of an ambient scribe for clinic note documentation during this visit. An additional 30 minutes was spent addressing the problem(s) noted at todays visit. This includes time spent before the visit reviewing the chart, time spent during the visit, and time spent after the visit on documentation reviewing laboratory results, diagnostic imaging, medications, performing a medically necessary evaluation, counseling on diagnoses, care coordination, ordering appropriate tests, ordering appropriate medications, review of tests performed by other providers, reporting test results with the patient, communication with other healthcare providers. [facility] Medical History (Updated 05/16/25 @ 15:03 by Brittanie Soto [facility]) Heart burn HTN (hypertension) Hx of mammogram (~05/2024) Sun-damaged skin Surgical History (Updated 03/02/25 @ 13:13 by Eddy Cee MA) H/O: hysterectomy Hx of colonoscopy (~2019) Family History (Updated 03/02/25 @ 13:14 by Eddy Cee MA) Father HTN (hypertension) High cholesterol Mother Bleeding ulcer Social History (Updated 03/02/25 @ 13:11 by Eddy Cee MA) Household Members: Spouse Both parents involved: No Caregiver staying overnight: No Housing: House Are you a primary ambulatory care coordinator to a significant other at home: No Do you presently have visiting nurse or other home services: No 75 years or older and lives alone: No Alcohol intake: never Patient Tobacco Use Status: Never used Tobacco e-Cigarette/Vaping Use: Never Used Second Hand Smoke Exposure: No service: No Current occupational status: retired Current occupational exposures/hazards: No Cognitive needs: No Hearing needs: No Vision needs: Yes (wear glasses) Questionnaire Medicare Wellness Checkup What is your age?: 65-70 What gender do you identify with?: female During the past 4 weeks, how much have you been bothered by emotional problems such as feeling anxious, depressed, irritable, sad or downhearted, and blue?: no t at all During the past 4 weeks, has your physical & emotional health limited your social activities with family, friends, neighbors, or groups?: not at all During the past 4 weeks, how much bodily pain have you generally had?: no pain During the past 4 weeks, was someone available to help you if you needed & wanted help?: yes, as much as I wanted During the past 4 weeks, what was the hardest physical activity you could do for at least 2 minutes?: moderate Can you get to places out of walking distance without help? (For eg., can you travel alone on buses, taxis or drive your car?): Yes Can you go shopping for groceries or clothes without someone's help?: Yes Can you prepare your own meals?: Yes Can you do your housework without help?: Yes Because of any health problems, do you need the help of another person with your personal care needs such as eating, bathing, dressing or getting around the house?: No Can you handle your own money without help?: Yes During the past 4 weeks, how would you rate your health in general?: excellent During the past 4 weeks how have things been going for you?: very well; could hardly better Are you having difficulties driving your car?: no Do you always fasten your seat belt when you are in a car?: yes, usually During past 4 weeks, have you been bothered by the following: never: Falling or dizzy when standing up, Sexual problems?, Trouble eating well?, Teeth or denture problems?, Problems using the telephone? and Tiredness or fatigue? Have you fallen 2 or more times in the past year?: No Are you afraid of falling?: No Are you a smoker?: no During the past 4 weeks, how many drinks of wine, beer, or other alcoholic beverages did you have?: no alcohol at all Do you exercise for about 20 minutes 3 or more times a week?: yes, some of the time Have you been given information to help with the following?: no: Hazards in your house that might hurt you? and no: Keeping track of your medications? How often do you have trouble taking medicines the way you have been told to take them?: I always take medicine as prescribed How confident are you that you can control & manage most of your health problems?: very confident What is your race?: White Activity of Daily Living Bathing - sponge bath, tub bath or shower: receives no assistance (gets in/out by self, if usual bathing means Dressing - getting clothes from closets & drawers, including inner/outer garments & fasteners.: gets clothes & gets completely dressed without help Toileting - going to the 'toilet room' for urine/bowel elimination & cleaning self/arranging clothes: goes to toilet room, cleans self, arranges clothes without help Transfer: moves in & out of bed and chair without help (may use support object) Continence: controls urination/bowel movements completely by self Feeding: feeds self without help Total Score: 0 Information obtained from: patient Using telephone: independent Traveling: independent Shopping: independent Preparing meals: independent Housework: independent Taking medicine: independent Managing money: independent PHQ-9 Over the last 2 weeks, how often have you been bothered by any of the following problems? 1. Little interest or pleasure in doing things: not at all 2. Feeling down, depressed, or hopeless: not at all 3. Trouble falling or staying asleep, or sleeping too much: not at all 4. Feeling tired or having little energy: not at all 5. Poor appetite or overeating: not at all 6. Feeling bad about yourself - or that you are a failure or have let yourself or your family down: not at all 7. Trouble concentrating on things, such as reading the newspaper or watching television: not at all 8. Moving or speaking so slowly that other people could have noticed. Or the opposite - being so fidgety or restless that you have been moving around a lot more than usual: not at all 9. Thoughts that you would be better off or of hurting yourself in some way: not at all Total score: 0 Depression Screening Interpretation: Negative Depression Screening Done: Yes 04396 - PHQ-9 Billing: Yes Source: Developed by Drs. Marcos Pineda, Lo Yan, Sukhwinder Matute and colleagues, with an educational maikol from [employer]. Physical Exam Vital Signs: Last Vital Signs Temp 97.2 F 05/16/25 14:07 Pulse 69 05/16/25 14:07 Resp 12 05/16/25 14:07 BP 102/68 05/16/25 14:07 Pulse Ox 98 05/16/25 14:07 Oxygen Delivery Method Room Air 05/16/25 14:07 BMI result Body Mass Index 29.5 Results Reviewed Results Reviewed: Laboratory 03/28/25 Result Units Range Interpretation Provider Comments White Blood Count 5.7 X10*3/uL (4.8-10.8) Red Blood Count 4.80 X10*6/uL (4.20-5.50) Hemoglobin 15.0 g/dl (12.0-16.0) Hematocrit 43.7 % (37.0-47.0) Mean Corpuscular Volume 91.0 fL (80.0-98.0) Mean Corpuscular Hemoglobin 31.3 pg (27.0-33.0) Mean Corpuscular Hemoglobin Concent 34.3 g/dl (31.0-35.0) Red Cell Distribution Width 12.4 % (11.0-16.0) Platelet Count 210 X10*3/uL (160-400) Mean Platelet Volume 11.6 fL (9.4-12.3) Nucleated RBC Absolute Count (auto) 0.000 X10*3/uL (0.0-0.012) Nucleated Red Blood Cells % (auto) 0.0 /100WBC (0.0-0.2) Sodium Level 143 mmol/L (135-145) Potassium Level 3.9 mmol/L (3.3-5.1) Chloride Level 108 mmol/L (96-108) Carbon Dioxide Level 29 mmol/L (22-29) Anion Gap 10 (12-20) Low Blood Urea Nitrogen 19 mg/dL (9-16) High Creatinine 0.86 mg/dL (0.5-1.4) Estimated Creatinine Clearance Calc Not Reportable Estimat Glomerular Filtration Rate > 60 Random Glucose 96 mg/dL (60-115) Estimated Average Glucose 105 mg/dL Hemoglobin A1c Percent 5.3 % (<6.0) Calcium Level 9.3 mg/dL (8.4-10.2) Ferritin 184 ng/mL (10-250) Total Bilirubin 0.6 mg/dL (0.0-1.0) Aspartate Amino Transf (AST/SGOT) 29 U/L (5-31) Alanine Aminotransferase (ALT/SGPT) 24 U/L (0-31) Alkaline Phosphatase 49 U/L (39-117) Total Protein 7.0 g/dL (6.5-8.0) Albumin 4.4 g/dL (3.5-5.0) Triglycerides Level 138 mg/dL (<150) Cholesterol Level 193 mg/dL (<200) LDL Cholesterol, Calculated 113 mg/dL (<100) High HDL Cholesterol 53 mg/dL (>40) Vitamin B12 Level 213 pg/mL (200-900) 25-Hydroxy Vitamin D Total 44.3 ng/mL (>30) Folate 12.3 ng/mL (> or = 4.0) Thyroid Stimulating Hormone (TSH) 1.69 uIU/mL (0.32-4.0) Urine Creatinine 112.60 mg/dL Urine Microalbumin < 5.0 mg/L Urine Microalbumin/Creatinine Ratio TNP Assessment & Plan Assessment & Plan (1) Encounter for subsequent annual wellness visit (AWV) in Medicare patient: Onset Date: ~05/16/25 Code(s): Z00.00 - Encounter for general adult medical examination without abnormal findings (2) ACP (advance care planning): Onset Date: ~05/16/25 Comment: DNR/DNI has HCP and Living will in place Code(s): Z71.89 - Other specified counseling (3) Pruritic rash: Code(s): L28.2 - Other prurigo (4) Menopause: Comment: DEXA ordered Code(s): Z78.0 - Asymptomatic menopausal state (5) Immunization counseling: Comment: advised to get Shingles/Zoster and Pneumococcal Code(s): Z71.85 - Encounter for immunization safety counseling (6) DNR (do not resuscitate): Onset Date: ~05/16/25 Code(s): Z66 - Do not resuscitate (7) Blurred vision: Comment: [facility] Code(s): H53.8 - Other visual disturbances (8) Hard of hearing: Comment: [facility] audio referral Code(s): H91.90 - Unspecified hearing loss, unspecified ear Plan . Orders: Orders XR DEXA axial skeleton Today Z13.820 - Encounter for screening for osteoporosis, Z78.0 - Asymptomatic menopausal state Referrals Ophthalmology Referral H53.8 - Other visual disturbances Audiology Referral H91.90 - Unspecified hearing loss, unspecified ear Gastroenterology Referral Z12.11 - Encounter for screening for malignant neoplasm of colon Medications: New cetirizine (Zyrtec) 20 mg (2 x 10 mg) PO BID PRN 120 caps 0RF allergy symptoms 30 days hydroxyzine HCl 50 mg PO TID PRN 30 tabs 0RF itching On Hold rosuvastatin Hold Comment: Doctor's Order 10 mg PO DAILY 90 tabs 0RF Patient Instructions: Hold rosuvastatin. Start hydroxyzine 25-50 mg 1 tablet 3 times per day as needed for itch. If this remedy resolves your rash, send me a portal message. If after 1 week it does not, continue to hold the rosuvastatin and then start cetirizine 20 mg twice per day and be sure to follow up with Dermatology. Please get the pneumococcal vaccine and the shingles vaccine at the pharmacy. Health screenings for women You should visit your health care provider from time to time, even if you are healthy. The purpose of these visits is to: Screen for medical issues Assess your risk for future medical problems Encourage a healthy lifestyle Update vaccinations and other preventive care services Help you get to know your provider in case of an illness Information Even if you feel fine, you should still see your provider for regular checkups. These visits can help you avoid problems in the future. For example, the only way to find out if you have high blood pressure is to have it checked regularly. High blood sugar and high cholesterol levels also may not have any symptoms in the early stages. A simple blood test can check for these conditions. There are specific times when you should see your provider or receive specific health screenings. The [place] Preventive Services Task Force publishes a list of recommended screenings. Below are screening guidelines for women ages 18 to 39. BLOOD PRESSURE SCREENING Your blood pressure should be checked at least once every 3 to 5 years if: Your blood pressure is in the normal range (top number less than 120 mm Hg and bottom number less than 80 mm Hg) You don't have risk factors for high blood pressure Ask your provider if you need your blood pressure checked more often if: The top number is 120 to 129 mm Hg or the bottom number is 70 to 79 mm Hg You have diabetes, heart disease, kidney problems, are overweight, or have certain other health conditions You have a first-degree relative with high blood pressure You are Black You had high blood pressure during a If the top number is 130 mm Hg or greater or the bottom number is 80 mm Hg or greater, this is considered stage 1 hypertension. Schedule an appointment with your provider to learn how you can reduce your blood pressure. Watch for blood pressure screenings in your area. Ask your provider if you can stop in to have your blood pressure checked. BREAST CANCER SCREENING Experts do not agree about the benefits of breast self-exams in finding breast cancer or saving lives. Talk to your provider about what is best for you. A screening mammogram is not recommended for most women under age 40. Your provider may discuss and recommend mammograms, MRI scans, or ultrasounds if you have an increased risk for breast cancer, such as: A mother or sister who had breast cancer at a young age (most often starting screening earlier than the age the close relative was diagnosed) You carry a high-risk genetic marker CERVICAL CANCER SCREENING Cervical cancer screening should start at age 21 years unless your provider advises otherwise. After the first test: Women ages 21 through 29 should have a Pap test every 3 years. Exoprts do not agree on whether HPV testing is recommended for this age group. Women ages 30 through 65 should be screened with either a Pap test every 3 years or the HPV test every 5 years or both tests every 5 years (called cotesting ). Women who have been treated for precancer (cervical dysplasia) should continue to have Pap tests for 20 years after treatment or until age 65, whichever is longer. If you have had your uterus and cervix removed (total hysterectomy), and you have not been diagnosed with cervical cancer or precancer (high grade cervical neoplasia), you do not need cervical cancer screening. CHOLESTEROL SCREENING Cholesterol screening should begin at: Age 45 for women with no known risk factors for coronary heart disease Age 20 for women with known risk factors for coronary heart disease Repeat cholesterol screening should take place: Every 5 years for women with normal cholesterol levels More often if changes occur in lifestyle (including weight gain and diet) More often if you have diabetes, heart disease, kidney problems, or certain other conditions DIABETES SCREENING You should be screened for diabetes starting at age 35 and then repeated every 3 years if you have no risk factors for diabetes. Screening may need to start earlier and be repeated more often if you have other risk factors for diabetes, such as: You have a first degree relative with diabetes. You are overweight or have obesity. You have high blood pressure, prediabetes, or a history of heart disease. Screening for diabetes should be done if you are planning to become and you are overweight and have other risk factors such as high blood pressure. DENTAL EXAM Go to the dentist once or twice every year for an exam and cleaning. Your dentist will evaluate if you need more frequent visits. EYE EXAM Have an eye exam every 5 to 10 years before age 40. If you have vision problems, have an eye exam every 2 years or more often if recommended by your provider. You should have an eye exam that includes an examination of your retina (back of your eye) at least every year if you have diabetes. IMMUNIZATIONS Commonly needed vaccines include: Flu shot: get one every year. COVID-19 vaccine: ask your provider what is best for you. Tetanus-diphtheria and acellular pertussis (Tdap) vaccine: have one at or after age 19 as one of your tetanus-diphtheria vaccines if you did not receive it as an adolescent. Tetanus-diphtheria: have a booster (or Tdap) every 10 years. Varicella vaccine: receive 2 doses if you never had chickenpox or the varicella vaccine. Hepatitis B vaccine: receive 2, 3, or 4 doses, depending on your exact circumstances. Measles, mumps, and rubella (MMR) vaccine: receive 1 to 2 doses if you are not already immune to MMR. Your provider can tell you if you are immune. Ask your provider about the human papillomavirus (HPV) vaccine if: You have not received the HPV vaccine in the past You have not completed the full vaccine series (you should catch up on this shot) Ask your provider if you should receive other immunizations if you have certain health problems that increase your risk for some diseases such as pneumonia. INFECTIOUS DISEASE SCREENING Women who are sexually active should be screened for chlamydia and gonorrhea up until age 25. Women 25 years and older should be screened for chlamydia and gonorrhea if at high risk. Screening for hepatitis C: All adults ages 18 to 79 should get a one-time test for hepatitis C. people should be screened at every . Screening for human immunodeficiency virus (HIV): All people ages 15 to 65 should get a one-time test for HIV. Depending on your lifestyle and medical history, you may also need to be screened for infections such as syphilis and HIV, as well as other infections. PHYSICAL EXAM All adults should visit their provider from time to time, even if they are healthy. The purpose of these visits is to: Screen for disease Assess your risk of future medical problems Encourage a healthy lifestyle Update your vaccinations and other preventive care services Maintain a relationship with a provider in case of an illness Your height, weight, and BMI should be checked at every exam. During your exam, your provider may ask you about: Depression and anxiety Diet and exercise Alcohol and tobacco use Safety issues, such as using seat belts, smoke detectors, and intimate partner violence Your medicines and risk for interactions SKIN SELF-EXAM Your provider may check your skin for signs of skin cancer, especially if you're at high risk, such as if you: Have had skin cancer before Have close relatives with skin cancer Have a weakened immune system OTHER SCREENING Talk with your provider about colon cancer screening if you have a strong family history of colon cancer or polyps, or if you have had inflammatory bowel disease or polyps yourself. Routine bone density screening of women under 40 is not recommended. Quality Reporting (2019) Adult ([facility] 138//) Smoking risk assessment performed?: Yes Patient Tobacco Use Status: Never used Tobacco Depression screening performed: Yes Screen Results: Yes Negative screen Recommended changes not done: EKG (managed by Cards) Systolic BP not done?: No Diastolic BP not done?: No BMI screening not done: No Sexual Activity Screening ([facility] 153) Sexually active?: Yes Immunizations ([facility] 147, 117) Annual Influenza Vaccine: Yes Measles Antibody Test: No Mumps Antibody Test: No Rubella Antibody Test: No Varicella Antibody Test: No Anti Hepatitis A IgG Antigen test: No Anti Hepatitis B Virus Surface Ab test: No Fall Risk Screening ([facility] 139) Last assessed Fall Risk: 05/16/25 Fall risk assessment: No Falls in past year Dementia Assessment ([facility] 149) Cognitive assessment recorded: Yes Assessment of cognition with standardized tool: Yes Depression/Bipolar (159/160/161/177) PHQ-9: Total score: 0 Ophthalmol:Cataracts Visual Acuity (133) Visual acuity exam performed: Yes (see results) Coding Level of Care Code Medicare Subsequent (G0439) Est Pt Level 4 (39553) Diagnoses Encounter for subsequent annual wellness visit (AWV) in Medicare patient Z00.00 ACP (advance care planning) Z71.89 Pruritic rash L28.2 Menopause Z78.0 Immunization counseling Z71.85 DNR (do not resuscitate) Z66 Blurred vision H53.8 Hard of hearing H91.90 CPT Codes Advance Care Planning - Time spent: 16-45 minutes ([id number]) Additional Codes PHQ-9 - 83675 - PHQ-9 Billing: Yes ([id number]) Advance Care Planning Advance Care Planning discussion: Exists, not on file Date of discussion: 05/16/25 Who was present: self, DNR/DNI Forms completed: Health Care Proxy, MOLST and Living will Time spent: 16-45 minutes Actual minutes spent: 16
[2025-05-16 14:07] VITALS: BP 102/68; PULSE 69; RESP 12; TEMP 36.2; O2SAT 98; BMI 29.5
--- OUTSIDE RECORDS SUMMARY | 2025-05-16 16:19 | XMS_ITS | Clinical Summary ---
Author Organization [facility] Address [address] [place], [place] [address] Phone Care Team Providers Care Store Administrator Name Role Phone Brittanie Soto Primary Care Provider [phone] Allergies No known active allergies Medications aspirin 81 mg chewable tablet 81 mg daily. 0 Active lisinopril (PRINIVIL,ZESTR IL) 40 mg tablet Take 1 tablet (40 mg total) by mouth 1 (one) time each day. 90 tablet 1 5 Active metoprolol tartrate (LOPRESSOR) 25 mg tablet TAKE 1/2 OF A TABLET BY MOUTH TWICE A DAY 90 tablet 3 5 Active rosuvastatin (CRESTOR) 10 mg tablet Take 1 tablet (10 mg total) by mouth 1 (one) time each day. 90 each 2 5 Active rosuvastatin (CRESTOR) 5 mg tablet TAKE 1 TABLET BY MOUTH EVERY DAY 90 tablet 3 5 Active hydroCHLOROthia zide (HYDRODIURIL) 25 mg tablet TAKE 1 TABLET BY MOUTH EVERY DAY 90 tablet 1 5 Active hydroCHLOROthia zide (HYDRODIURIL) 25 mg tablet TAKE 1 TABLET BY MOUTH EVERY DAY 90 tablet 1 5 05/06/20 25 Discontinued Hospital, Clinic, or Other Facility Administered Medication [...] and lisinopril as prescribed. Assessment & Plan (04/07/2025 8:26 AM EST): Blood pressure is well-controlled today, continue on current antihypertensive medications. I have reviewed with the patient the [...] is acceptable. Continue with rosuvastatin as prescribed. Assessment & Plan (04/07/2025 8:26 AM EST): Patient continues on rosuvastatin 5 mg daily. Patient had recent lipid panel drawn, requested from [facility]. Coronary artery dissection 07/26/2020 Overview (02/17/2024): Last [...] with routine medical care. Assessment & Plan (04/07/2025 8:26 AM EST): The patient has history of coronary artery dissection in 2010. She continues on metoprolol tartrate 12.5 mg twice daily. She continues on aspirin and statin as well. She denies any exertional chest discomfort. Patient advised to seek emergency medical attention by calling 911 if they were to develop severe dyspnea, chest pain that did not resolve with rest or nitroglycerin, or if they were to faint. Orders: ECG 12 lead Assessment & Plan (03/26/2024 3:29 PM EST): [...] Encounters Date Type Department Care Team Description 04/08/2025 Telephone [facility] [address] [facility] [address] [place] [address] Tanna Driscoll NP 04/07/2025 7:40 AM EST Office Visit [facility] [address] [facility] [address] [place] [address] Tanna Driscoll NP Coronary artery dissection (Primary Dx); Hypertension, unspecified type; Hypercholesterolemia from Last 3 Months Surgical History Surgery [...] Sign Reading Time Taken Comments Blood Pressure 110/80 04/07/2025 8:00 AM EST Pulse 60 04/07/2025 8:00 AM EST Temperature - - Respiratory Rate - - Oxygen Saturation 98% 04/07/2025 8:00 AM EST Inhaled Oxygen Concentration - - Weight 78.4 kg (172 lb 14.4 oz) 04/07/2025 8:00 AM EST Height 165.1 cm (5' 5 ) 04/07/2025 8:00 AM EST Body Mass Index 28.77 04/07/2025 8:00 AM EST Plan of Treatment Upcoming Encounters Date Type Department Care Team (Late st Contact Info) Description 06/02/2025 7:15 AM EST [facility]ointment [facility] [address] [address] Health Maintenance Due Date Last Done Comments [...] 2025 02/26/2023, 04/30/2022, 03/13/2021, Additional history exists Colorectal Cancer Screening: Colonoscopy 04/18/2026 04/18/2021 Breast Cancer Screening 06/01/2026 06/01/19, 05/07/2023, 05/06/2022, Additional history exists DTaP,Tdap,and Td Vaccines (2 - Td or Tdap) 01/13/2028 01/12/2018 Cholesterol Screening (Lipid Panel) 04/12/2029 04/12/2024, 02/01/2021 RSV Immunization Adult Patients (1 - 1-dose 75+ series) 2031 Influenza Vaccine Completed 03/02/2025, , 02/26/2023, Additional history exists HIB Vaccines Aged Out No longer eligi [...] Procedure Name Priority Date/Time Associated Diagnosis Comments ECG 12-LEAD Routine 04/07/2025 8:26 AM EST Coronary artery dissection MG MAMMO DIGITAL SCREENING W JESUS BILAT Routine 06/01/2024 8:15 AM EST Encounter for screening mammogram for breast cancer LIPID PANEL Routine 04/12/2024 8:05 AM EST Coronary artery dissection HM COLONOSCOPY Routine 04/18/2021 from Last 3 Months or Most Recently Relevant to Health Maintenance Results * ECG 12 lead (04/07/2025 8:26 AM EST) Ventricular Rate ECG 60 BPM GEMUSE Atrial Rate 60 BPM GEMUSE P-R Interval 180 ms GEMUSE QRS Duration 80 ms GEMUSE Q-T Interval 436 ms GEMUSE QTc 436 ms GEMUSE P Wave [place] 63 degrees GEMUSE R [place] -3 degrees GEMUSE T [place] 45 degrees GEMUSE ECG Interpretation Normal sinus rhythm Normal ECG When compared with ECG of 26-MAR-2024 13:00, No significant change was found Confirmed by MARYJANE HUMPHREY ([id number]) on 04/10/2025 7:04:30 PM GEMUSE 04/07/2025 7:59 AM EST 04/10/2025 7:04 PM EST us Tanna Driscoll NP ECG ORDERABLES Edited Result - Final APRIL * MG Mammo Digital Screening w Jesus [...] Signed Date: 06/01/2024 09:45 ET Workstation ID: [id number] Transcribed By: Self Edit Transcribed Date: 06/01/2024 09:33 ET Narrative 06/01/2024 9:45 AM EST EXAM: SCREENING MAMMOGRAPHY, BILATERAL HISTORY: SCREENING. Mother with history of breast cancer. COMPARISON: 05/07/2023, 05/04/2022, 03/08/2021 TECHNIQUE: Synthesized CC and MLO projections of each breast. Tomosynthesis of each breast in the CC and MLO projections. ADDITIONAL IMAGING: None Computer-aided detection was employed with the [employer] Interpreting AI 3-D. TISSUE DENSITY: The breasts are [...] None Computer-aided detection was employed with the [employer] profound AI 3-D. TISSUE DENSITY: The breasts [...] Signed Date: 06/01/2024 09:45 ET Workstation ID: [id number] Transcribed By: Self Edit Transcribed Date: 06/01/2024 [...] 40 mg/dL [facility] 1 LDL Chol Calc (NIH) 106(H) 0 - 99 mg/dL [facility] 1 Blood Venous blood specimen / Unknown 04/12/2024 8:05 AM EST 04/12/2024 Narrative [facility] 1 - 04/13/2024 1:06 AM EST Performed at: - [facility] [address] [id number] [place] Laborer: Antionette Amado MD, Phone: [phone] Vale Esparza MD LAB BLOOD ORDERABLES Final Res ult [facility] 1 * Colonoscopy (04/18/2021) HM Colonoscopy No interpretation , abstracted Anatomical Region Laterality Modality Other Historical Provider HEALTH MAINTENANCE Final Result from Last 3 Months or Most Recently Relevant to Health Maintenance Insurance MEDICARE [facility] Care Teams Store Administrator Relationship Specialty Start Date End Date Brittanie Soto FNP [address] [place] [phone] PCP - General Nurse Practitioner 04/07/25
== END 2025-05-16 14:56 | disposition home or self-care (01) ==
LOC: HO.HMCFM 14:02
PROVIDERS: PCP Nurse Practitioner Family; Visit Provider Nurse Practitioner Family
DX: Z00.00 Encounter for general adult medical examination without abnormal findings (principal); L28.2 Other prurigo; H91.93 Unspecified hearing loss, bilateral; Z66 Do not resuscitate

== ENCOUNTER → 2025-05-16 14:02 | Outpatient (BNVA) | payer MEDICARE, OTHER, SELFPAY | PROVIDERS: PCP Nurse Practitioner Family; Visit Provider Nurse Practitioner Family | DX: Z00.01 Encounter for general adult medical examination with abnormal findings (principal); L28.2 Other prurigo; E78.5 Hyperlipidemia, unspecified; I25.10 Atherosclerotic heart disease of native coronary artery without angina pectoris; H53.8 Other visual disturbances; H91.90 Unspecified hearing loss, unspecified ear; Z13.820 Encounter for screening for osteoporosis; Z12.11 Encounter for screening for malignant neoplasm of colon; Z13.31 Encounter for screening for depression; Z66 Do not resuscitate; Z71.85 Encounter for immunization safety counseling; Z78.0 Asymptomatic menopausal state; Z85.828 Personal history of other malignant neoplasm of skin; Z86.79 Personal history of other diseases of the circulatory system | CPT/HCPCS: 96127; 99212; 99497 ==